=== PATIENT | female | born 1935 | race Caucasian/White ===

== ENCOUNTER → 2016-09-29 | Day surgery (SDC) | payer OTHER ==
[~2016-09-29] MED LIST: ACETAMINOPHEN/HYDROcodone 325 MG/5 MG TAB ONE; BUPIVACAINE/EPINEPHRINE 0.25% PF 10 ML VIAL ONE; FENO160T2 PO; KETOROLAC TROMETHAMINE 30 MG/ML (IVP) VIAL ONE; LACTATED RINGER'S 1000 ML INJ 1,000 ML ONE; LISI10TA PO; MEPERIDINE HCL 25 MG/ML VIAL ONE; METF-324 PO; MORPHINE SULFATE 4 MG/ML INJ ONE; ONDANSETRON HCL 4 MG/2 ML VIAL IV PUSH ONE; OXYC-68 PO; PROPOFOL 200 MG/20 ML AMP IV ONE; SIMV20TA PO; SODIUM CHLORIDE 0.9% INJ 10 ML ONE; TRAZ100 PO; VITA100020 IJ; VITA5000 PO; ceFAZolin INJ 1,000 MG VIAL ONE
--- NOTE | 2016-09-29 15:39 | TN ---
cc: BETTE MANZANARES M.D. DATE OF SURGERY: 10/09/2016 X-ray left hip, one view AP, shows satisfactory placement of an anchor screw tap, left hip greater trochanteric bursa region. MD RAVIN Headley/CIERRA /3:27 PM /3:36 PM
--- NOTE | 2016-09-29 16:01 | TN ---
cc: BETTE AUSTIN M.D. DATE OF SURGERY 09/29/2016 PREOPERATIVE DIAGNOSES 1. Left hip chronic greater trochanteric bursitis. 2. Left hip gluteus medius, gluteus minimus (hip abductors) tendonitis, partial tendon tears. POSTOPERATIVE DIAGNOSES 1. Left hip chronic greater trochanteric bursitis. 2. Left hip gluteus medius, gluteus minimus (hip abductors) tendonitis, partial tendon tears. PROCEDURE Left hip, excision of chronic greater trochanteric bursa; repair and transfer external oblique and hip abductor tendons to greater trochanter. SURGEON Yohana Austin MD ASSESSMENT Tessy Arce, PAC SPECIMENS None. ESTIMATED BLOOD LOSS Minimal. COMPLICATIONS None. ANESTHESIA General. DRAINS None. CONDITION Stable. PLAN Activity as per orders. PROCEDURE The patient was brought in the operating room, had satisfactory anesthesia by Dr. Sy Brown of the department of anesthesia. The patient was carefully transferred on the operating room table. She was placed in the lateral decubitus position. The patient placed in beanbag. All pressure points well-padded. Martino bag was made hard for appropriate positioning. The left hip and lower extremity down to and including the toes was prepped and draped in usual sterile manner. Small lateral exposure to the hip was made. Dissection of the skin and subcutaneous tissue. All bleeders coagulated. The fascia jesús and gluteus tervor was incised in line with skin incision. Patient found to have significant chronic greater trochanteric bursitis. Excision of the greater trochanteric bursa was performed. This was done with Bovie and coagulation and with Metzenbaum scissors. The patient was found to have a partial tear involving the gluteus medius and minimus tendons. Using a 5.5 mm x 14 mm light anchor screw under fluoroscopic guidance, it was initially punched and tapped. This is done under fluoroscopic guidance into the appropriate depth of the tap. [place] screw itself was then placed into this prepared hole. With the four needles and then the sutures were used. Transfer of the external oblique tendons with the repair of the gluteus medius and minimus abductor tendons. This was done in a very satisfactory manner. The wound was irrigated with copious amounts of sterile saline and antibiotic solution. The wound itself was dry. Wound was closed in routine manner. The fascia jesús and gluteus trevor were closed with #2 Tycron suture. Subcutaneous layers were closed with 2-0 and 3-0 Vicryl. The skin was approximated with running subcuticular 2-0 nylon. Sterile dressings were applied. The patient tolerated the procedure well and arrived in recovery room in stable and satisfactory condition. ADDENDUM X-ray left hip, one view AP, shows satisfactory placement of an anchor screw tap, left hip greater trochanteric bursa region. MD RAVIN Headley/KK /3:21 PM /12:21 PM
== END | disposition home or self-care (01) ==
LOC: ESDC 12:36
PROVIDERS: ATTEND Orthopaedic Surgery Orthopaedic Surgery of the Spine
DX: M70.62 Trochanteric bursitis, left hip (principal); M76.02 Gluteal tendinitis, left hip
CPT/HCPCS: 01250; 27062; 27100; 73501; 76000; C1713; J0690; J1885; J2175; J2270; J2405; J3010; J7120

== ENCOUNTER 2018-01-19 05:38 | Inpatient (IN) ==
[2018-01-19] MEDS ORDERED: Metoprolol Tartrate 25 MG Tablet PO SCH (06:15)
[2018-01-19] MEDS ORDERED: Chlorhexidine Gluconate 2% 1 Pack (2 Cloths) TOPICAL SCH (06:15)
[2018-01-19] MEDS ORDERED: Chlorhexidine 4% Topical 120 APPLIC/120 ML Bottle TOPICAL SCH (06:15)
[2018-01-19] MEDS ORDERED: Vancomycin Inj 1 GM/200 ML PIGGYBACK IV.SIG SCH (07:00)
[2018-01-19] MEDS ORDERED: Sodium Chlor 0.9% Inj 500 ML IV.SIG SCH (07:00)
[2018-01-19] MEDS ORDERED: ceFAZolin 2 GM Premix Inj 2 GM/50 ML PIGGYBACK IV.SIG SCH (07:00)
[2018-01-19] MEDS ORDERED: Glycopyrrolate Inj 1 MG/5 ML Syringe IV.PUSH ONE (12:00)
[2018-01-19] MEDS ORDERED: Phenylephrine/NS 1000 MCG/10ML Syringe IV.PUSH ONE (12:00)
[2018-01-19] MEDS ORDERED: Lidocaine PF 1% Inj 5 ML Syringe INFILTRATN ONE (12:00)
[2018-01-19] MEDS ORDERED: Neostigmine Inj 5 MG/5 ML Syringe IV.PUSH ONE (12:00)
[2018-01-19] MEDS ORDERED: Bisacodyl 10 MG Supp RECTAL PRN (12:35)
[2018-01-19] MEDS ORDERED: Morphine Inj 4 MG/ML Vial IV.PUSH PRN (12:35)
[2018-01-19] MEDS ORDERED: oxyCODONE/Acetaminophen 10/325 Tablet PO PRN (12:35)
[2018-01-19] MEDS ORDERED: Post-op Orders (for Pharmacy) OTHER STA (12:35)
--- NOTE | 2018-01-19 12:50 | P.OP ---
- Preoperative Diagnosis (1) Lumbar spinal stenosis (2) Status post lumbar laminectomy Comment: L3-4, L4-5, L5-S1 (3) Lumbar radiculopathy Comment: Left greater than right (4) Lumbar spine instability Date of procedure: 01/19/18 Procedure: Revision lumbar laminectomy L3-4 with left subtotal facet resection L3-4. Revision lumbar laminectomy L4-5 with subtotal facet resection left L4-5. Revision lumbar laminectomy L5-S1 with subtotal facet resection left L5-S1. Posterior spinal fusion, lateral transverse process technique L3-S1. Posterior lateral interbody fusion L3-4, L4-5 and L5-S1, from the left. Placement of interbody cages L3-4, L4-5, L5-S1. Posterior spinal segmental instrumentation, L3-S1. Major bone grafting of the lumbar spine Anesthesia: GETA Surgeon: Pradip Austin MD Mold Puller: JORDY Ley Operation and Findings: EBL: 200 ml NOTE: Anna Marie Ley PA-C was present for the entire surgical procedure as my care management assistant. In my medical opinion her skill and care was necessary for proper management of this patient INDICATIONS: This patient is an 82-year-old female status post multiple previous lumbar surgeries for laminectomy and decompression. The patient has segmental instability at all 3 levels. She has a high-grade foraminal stenosis L3-4 L4-5 and L5-S1. She has significant spondylosis with collapse contributing to that foraminal stenosis. This patient now presents for surgical treatment. INSTRUMENTATION: Spine wave stacks cages and extended tab instrumentation PROCEDURE: The patient brought to the operating room and anesthetized the supine position. The patient positioned prone on the Zach frame on the Anderson table. All pressure points are protected. The back was scrubbed with alcohol followed by Hibiclens followed by ChloraPrep and draped sterilely and antibiotics were given within a routine time window. A timeout was done. Lateral radiographic images used to identify the proper level for the procedure. This was compared to the preoperative studies. Skin markings were made anticipating surgical treatment. The previous incision was excised. Exposure was afforded from L3 to the sacrum. Dissection continued across the facet joints and out to the tips of the transverse process which were prepared for later bone grafting. The microscope was rolled into the field. Under magnification, a high-speed bur was used to remove the lamina mostly to the left side but extending across midline at the L3-4 level. A subtotal facet resection was accomplished. There was a significant degree of scar tissue involving the crossing left L3 nerve root below the disc space and around the pedicle of L3. The lateral recess was completely decompressed. The annulus was approached. An annulotomy was performed and a total discectomy accomplished. A combination of local bone graft, demineralized bone matrix and stem cells were mixed. These were then impacted into the disc space between L3 and L4 followed by placement of a 21 mm Staxx cage which was deployed. Further bone grafting was continued posterior to the instrumentation. The wound was dry. We extended down to the L4-5 level. Revision of that laminectomy also was accomplished. A subtotal facet resection was accomplished on the left side. High degree of scar tissue seen involving L3 nerve root in the canal before exiting the foramen. The L4 nerve root was completely decompressed. There was some scar tissue along the edge of the dura between L3 and L4 nerve roots. The annulus was approached. This was opened. All cartilaginous material was removed. Bone graft was placed into this region followed by placement of a Staxx cage which was deployed. The attention was directed to L5-S1 and in a likewise fashion this level was decompressed. There was a significant amount of granulation material adjacent to the joint consistent with an early ganglion cyst compressing the exiting L5 nerve root. The crossing S1 nerve root was decompressed as well. An annulotomy was accomplished. A total discectomy was accomplished. Bone grafting was position followed by placement of a cage at S1. Each pedicle was probed and accessed with a combination of a high-speed bur for entrance and a blunt probe. These were measured and very carefully screws placed bilaterally at L3, L4, L5 and S1. Each screw was charged with electric current and there were no abnormal potentials registered in either lower extremity. A proper length slava was attached and tightened re-creating lordosis. The wound was irrigated copiously. Bone grafting was placed in the lateral gutters from L3 to the sacrum. A deep drain was brought out through a separate stab incision. The fascia was closed with interrupted #1 Vicryl suture, subcutaneous tissue 2-0 Vicryl suture and skin with intradermal 3-0 Vicryl followed by Steri-Strips benzoin and a sterile dressing. Intraoperative x-rays were obtained showing satisfactory alignment and position of the instrumentation. There was no complication that was appreciated. The patient was awakened and taken to the recovery room in satisfactory condition. FINDINGS: There was a high-grade stenosis at L3-4 and a moderate to high-grade at L4-5. There was a ganglion compressing the exiting L5 nerve root at L5-S1. There is no complication that was appreciated. There was no leak of cerebrospinal fluid.
[2018-01-19] MEDS ORDERED: HYDROmorphone PF Inj 2 MG/ML Vial ONE (13:41)
[2018-01-19] MEDS ORDERED: fentaNYL Citrate Inj 100 MCG/2 ML Ampul ONE (13:45)
--- NOTE | 2018-01-19 16:10 | XR ---
EXAM DATE: 01/19/2018 3:59 PM EDT AGE/SEX: 82 years / Female INDICATIONS: L3-4, L4-5, L5-S1 posterior lumbar fusion. CLINICAL DATA: This is the patient's initial encounter. Patient reports that signs and symptoms have been present for 1 day and indicates a pain score of Nonresponsive. MEDICAL/SURGICAL HISTORY: Hypertension. Diabetes mellitus type II. . Multiple laminectomies. COMPARISON: [facility], MR LUMBAR SPINE W AND W/O CONTRAST, 04/14/2017. . FINDINGS: AP and crosstable lateral views of the lumbar spine demonstrate intradiscal and transpedicular screw and slava fixation with at L3-S1. Hardware appears intact and there is intact size and alignment. Verte bral body heights are maintained. CONCLUSION: 1. Status post posterior fixation at L3-S1, as above. Electronically signed by: Oneil Doran MD 01/19/2018 4:09 PM EDT
[2018-01-19] MEDS: oxyCODONE/Acetaminophen 10/325 Tablet PO PRN (16:54)
[2018-01-19] MEDS: Morphine Sulfate 60 MG SR Tablet PO SCH (20:41)
[2018-01-19] MEDS: Multivitamin/Minerals Therapeutic Tablet PO SCH (20:41)
[2018-01-19] MEDS: Senna/Docusate Sodium 8.6/50 MG Tablet PO SCH (20:42)
[2018-01-19] MEDS ORDERED: FENOFIBRATE PO SCH (21:00)
[2018-01-19] MEDS ORDERED: Temazepam 15 MG Capsule PO PRN (21:00)
[2018-01-20] MEDS: oxyCODONE/Acetaminophen 10/325 Tablet PO PRN ×5 (02:42→20:45)
[2018-01-20] MEDS: hydroCHLOROthiazide 25 MG Tablet PO SCH (10:24)
[2018-01-20] MEDS: Morphine Sulfate 60 MG SR Tablet PO SCH ×2 (10:25→20:44)
[2018-01-20] MEDS: Lisinopril 20 MG Tablet PO SCH (10:25)
[2018-01-20] MEDS: Multivitamin/Minerals Therapeutic Tablet PO SCH ×2 (10:25→20:46)
[2018-01-20] MEDS: amLODIPine 10 MG Tablet PO SCH (10:25)
[2018-01-20] MEDS: Senna/Docusate Sodium 8.6/50 MG Tablet PO SCH ×2 (10:25→20:46)
--- NOTE | 2018-01-20 13:01 | P.PNOP ---
Subjective Interval history: Moderate to significant low back pain following surgery. her leg pain is much better. She has only been out of bed 1-2 times to the chair. She is urinating and drinking lots of water. No new CP or SOB. She is very concerned about going home. Prefers rehab. Physical Exam Vital signs: Vital Signs 01/19/18 13:30 01/19/18 13:45 01/19/18 14:00 Temperature 97.7 F Pulse Rate 52 L 72 78 Respiratory Rate 16 16 16 Blood Pressure 104/31 L 105/51 L 114/56 L Pulse Oximetry 95 95 95 01/19/18 14:15 01/19/18 14:30 01/19/18 15:30 Temperature Pulse Rate 79 79 87 Respiratory Rate 16 18 18 Blood Pressure 130/60 131/55 L 143/65 H Pulse Oximetry 95 95 95 01/19/18 16:30 01/19/18 18:00 01/19/18 20:00 Temperature 97.8 F 98.5 F 97.9 F Pulse Rate 98 H 102 H 107 H Respiratory Rate 18 18 18 Blood Pressure 144/68 H 151/71 H 138/60 Pulse Oximetry 95 95 95 01/20/18 00:00 01/20/18 00:09 01/20/18 03:17 Temperature 98.1 F Pulse Rate 96 H Respiratory Rate 19 15 15 Blood Pressure 147/65 H Pulse Oximetry 94 L 01/20/18 04:00 01/20/18 08:00 01/20/18 10:03 Temperature 98.0 F 98.4 F Pulse Rate 92 H 90 Respiratory Rate 20 17 Blood Pressure 144/64 H 144/75 H Pulse Oximetry 94 L 94 L 95 01/20/18 12:00 Temperature 97.9 F Pulse Rate 89 Respiratory Rate 18 Blood Pressure 140/63 Pulse Oximetry 93 L Intake & Output 01/19/18 01/20/18 01/20/18 18:59 06:59 18:59 Intake Total 2150 / 2150 4200 / 4200 Output Total 675 / 675 2080 / 2080 Balance 1475 / 1475 2120 / 2120 Weight 67.132 kg 67.13 kg Intake: IV 1250 / 1250 1200 / 1200 LR 1000 mL Inj 1,000 ML @ 80 1000 / 1000 mls/hr IV.CONT .[id number] [facility] Rx# :[id number] LR 1000 mL Inj 1,000 ML @ 30 1000 / 1000 mls/hr IV.SIG .Q24H [facility] Rx#: [id number] Vancomycin Inj 1 gm In 200 ml @ 200 / 200 200 mls/hr IV.SIG [employer] [facility] Rx#:[id number] Ancef 2 GM Premix Inj 2 gm In 50 / 50 50 ml @ 100 mls/hr IV.SIG [employer] [facility] Rx#:[id number] Ancef Inj 1,000 MG In NS Inj 200 / 200 100 ML @ 100 mls/hr IV.SIG ONCE ONE Rx#:[id number] Oral 3000 / 3000 Anesthesia Amount 900 / 900 Output: Urine 2000 / 2000 Estimated Blood Loss 200 / 200 Urine Amount (Catheter) 300 / 300 Indwelling Urethral Catheter 300 / 300 Wound Drainage 175 / 175 80 / 80 # 1 Lower Back Hemovac 175 / 175 80 / 80 Other: Date of Last Bowel Movement 01/19/18 Narrative: Laying in bed NAD L/S Dressing intact, mild ss drainage, mild swelling, no erythema +motor at (R 5/5, L 5-/5), ehl (R 5/5, L 5-/5), +sens, +nvi Neg homans bilaterally - Constitutional no acute distress - Urinary Catheter Management Indwelling Urethral Catheter Cath placed during this visit: yes, but has since been removed by the nurse Reason for continuing: Decision to DC catheter Insertion date: 01/19/18 Insertion time: 08:00 Removal date: 01/20/18 Removal time: 02:30 Results - Labs CBC & Chem 7: 01/20/18 07:30 Laboratory Results - last 24 hr 01/19/18 01/20/18 18:10 07:30 Hgb 9.1 L POC Glucose 148 H - Imaging Impressions Lumbar Spine X-Ray 01/19/18 00:00 CONCLUSION: 1. Status post posterior fixation at L3-S1, as above. - Procedures Lami L34, L45, L5S1, Posterior fusion L3-S1 Assessment and Plan - Ortho Post Op Day # 1 - Assessment and Plan pod#1 s/p Lami/Fusion L3-S1 Pain only moderately controlled. Leg pain much improved. Encouraged PT, ambulate with walker. Out of bed with brace for 10-12 weeks. Hold dressing changes unless saturated. PO pain meds as needed. Ice lumbar spine bid when in bed. D/C planning, likely SNF thursday. DME written.
[2018-01-20] MEDS: Fenofibrate 145 MG Tablet PO SCH (13:19)
[2018-01-21] MEDS: oxyCODONE/Acetaminophen 10/325 Tablet PO PRN ×3 (00:40→20:19)
--- NOTE | 2018-01-21 07:19 | P.PNOP ---
Subjective Interval history: Doing well. No leg pain. Complains of moderate low back pain. Having difficulty with independence going from bed to chair and walking Physical Exam Vital signs: Vital Signs 01/20/18 08:00 01/20/18 10:03 01/20/18 12:00 Temperature 98.4 F 97.9 F Pulse Rate 90 89 Respiratory Rate 17 18 Blood Pressure 144/75 H 140/63 Pulse Oximetry 94 L 95 93 L 01/20/18 16:00 01/20/18 20:00 01/20/18 21:14 Temperature 98.1 F 98.3 F Pulse Rate 87 99 H Respiratory Rate 18 18 18 Blood Pressure 146/65 H 148/66 H Pulse Oximetry 92 L 94 L 01/21/18 00:00 01/21/18 01:25 01/21/18 04:00 Temperature 98.1 F 98.6 F Pulse Rate 100 H 92 H Respiratory Rate 18 18 18 Blood Pressure 166/71 H 119/64 Pulse Oximetry 94 L 97 Intake & Output 01/20/18 01/21/18 01/21/18 18:59 06:59 18:59 Intake Total 650 / 650 Balance 650 / 650 Intake: Oral 650 / 650 Other: # Voids 4 Date of Last Bowel Movement 01/19/18 Narrative: Laying in bed NAD L/S Dressing intact, mild ss drainage, mild swelling, no erythema +motor at (R 5/5, L 5-/5), ehl (R 5/5, L 5-/5), +sens, +nvi Neg homans bilaterally - Urinary Catheter Management Indwelling Urethral Catheter Cath placed during this visit: yes, but has since been removed by the nurse Reason for continuing: Decision to DC catheter Insertion date: 01/19/18 Insertion time: 08:00 Removal date: 01/20/18 Removal time: 02:30 Results - Labs CBC & Chem 7: 01/20/18 07:30 Laboratory Results - last 24 hr 01/20/18 07:30 Hgb 9.1 L - Procedures Lami L34, L45, L5S1, Posterior fusion L3-S1 Assessment and Plan - Assessment and Plan pod#1 s/p Lami/Fusion L3-S1 Pain only moderately controlled. Leg pain much improved. Encouraged PT, ambulate with walker. Out of bed with brace for 10-12 weeks. Hold dressing changes unless saturated. PO pain meds as needed. Ice lumbar spine bid when in bed. D/C planning, likely SNF thursday. DME written. Stable orthopedically
[2018-01-21] MEDS: Morphine Sulfate 60 MG SR Tablet PO SCH ×2 (08:13→20:19)
[2018-01-21] MEDS: amLODIPine 10 MG Tablet PO SCH (08:13)
[2018-01-21] MEDS: hydroCHLOROthiazide 25 MG Tablet PO SCH (08:13)
[2018-01-21] MEDS: Senna/Docusate Sodium 8.6/50 MG Tablet PO SCH ×2 (08:13→20:19)
[2018-01-21] MEDS: Fenofibrate 145 MG Tablet PO SCH (08:13)
[2018-01-21] MEDS: Lisinopril 20 MG Tablet PO SCH (08:13)
[2018-01-21] MEDS: Multivitamin/Minerals Therapeutic Tablet PO SCH ×2 (08:13→20:19)
[2018-01-22] MEDS: oxyCODONE/Acetaminophen 10/325 Tablet PO PRN ×4 (00:38→18:19)
--- NOTE | 2018-01-22 07:35 | P.DS ---
Date of admission: 01/19/18 05:38 Primary care physician: No Primary Care Physician Attending physician on discharge: Pradip Austin Anticipated date of discharge: 01/22/18 Brief History from admission: Ms. Hackett has had ongoing back and hip pain for many years. She had previous laminectomy surgery in 2012 and 2015. Due to ongoing back symptoms and other arthritic conditions she began on narcotic pain medications. She began to have increasing leg pain. MRI studies were performed July 2016 and also August 2016 showing advancing lumbar spinal stenosis L3-S1. She began using a cane or a walker when she was out of her home. She underwent recent nerve root injection without much relief. Surgical treatment was eventually recommended in the form of revisional laminectomy L3-4, L4-5, L5-S1 and fusion at those levels. The patient agreed and now presents for the above. DS: Diagnosis - Discharge Diagnosis (1) Lumbar spinal stenosis Status: Acute (2) Status post lumbar laminectomy Status: Acute DS: Medications - Discharge Medications Prescriptions: oxycodone-acetaminophen 1 tab PO Q4H PRN #42 tab PRN Reason: Acute Pain DS: Summary Hospital Course: Surgical treatment was performed on the day of admission without complication. She recovered well in PACU and was transferred to the orthopaedic floor. Pain was controlled with IV and oral medication. Her preop leg pain improved. She was compliant with physical therapy and her lumbar brace. After 3 days she was found to be stable and discharged to a long-term facility. 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 She was given prescription for oxycodone for pain. - Time Spent with Patient Total time spent providing and/or coordinating discharge services: Greater than 30 minutes - Quality: VTE Deep Vein Thrombosis/Pulmonary Embolism Present on Admission: No Exam Vital signs: Vital Signs 01/21/18 08:00 01/21/18 11:57 01/21/18 16:00 Temperature 99.1 F 99.2 F 98.7 F Pulse Rate 113 H 114 H 108 H Respiratory Rate 17 18 17 Blood Pressure 166/75 H 144/60 H 143/63 H Pulse Oximetry 100 97 92 L 01/21/18 20:00 01/21/18 20:49 01/22/18 00:00 Temperature 100.3 F H 98.5 F Pulse Rate 116 H 95 H Respiratory Rate 18 18 18 Blood Pressure 166/57 H 117/56 L Pulse Oximetry 94 L 94 L 01/22/18 01:08 01/22/18 04:00 Temperature 98.1 F Pulse Rate 88 Respiratory Rate 18 18 Blood Pressure 121/58 L Pulse Oximetry 94 L Intake & Output 01/21/18 01/22/18 01/22/18 18:59 06:59 18:59 Intake Total 960 / 960 Balance 960 / 960 Weight 67.2 kg Intake: Oral 960 / 960 Other: # Voids 5 2 Date of Last Bowel Movement 01/19/18 01/19/18 - Constitutional no acute distress Results Procedures completed during hospitalization: Lami L34, L45, L5S1, Posterior fusion L3-S1 - Impressions ITS Impressions Lumbar Spine X-Ray 01/19/18 00:00 CONCLUSION: 1. Status post posterior fixation at L3-S1, as above. Discharge Plan - Discharge Disposition Patient Disposition: Discharge to SNF - Discharge Condition Condition: Good - Discharge Order Discharge Orders: Discharge Order (Routine); Ordered 01/22/18 Ordered By: Pradip Austin - Discharge Details Anticipated Discharge Date: 01/22/18 - Physicians Team Primary Care Provider: Primary Care Torri Baires Attending Provider: Pradip Austin Other Providers: Reggie Paredes - Rxs /Orders / Referrals /Forms Prescriptions: New oxycodone-acetaminophen 10-325 mg Tablet 1 tab PO Q4H PRN (Reason: Acute Pain) Qty: 42 RF: 0 Continue acetaminophen [Tylenol Extra Strength] 500 mg Tablet 1,000 mg PO BID PRN (Reason: Pain) amlodipine 10 mg Tablet 10 mg PO DAILY fenofibrate 160 mg Tablet 80 mg PO BID lisinopril-hydrochlorothiazide 20-25 mg Tablet 1 tab PO DAILY metformin 1,000 mg Tablet 1,500 mg PO DAILY morphine 60 mg Capsule, Er Multiphase 24 Hr 60 mg PO BID simvastatin 40 mg Tablet 20 mg PO BID Ambulatory Orders / Order Sets / DME: Adjustable Commode 3-in-1 (1 each) (Routine) Location: Determined by Patient Ordered By: Amaris Holly Walker With Front Wheels (1 each) (Routine) Location: Determined by Patient Ordered By: Amaris Holly Referrals: Primary Care Torri Baires [Primary Care Provider] - See Instructions - Discharge Instructions Patient Printed Instructions: Laminectomy (DC), How to Choose and Use a Walker (GEN), Lumbar Brace (DC) Additional Instructions: Prescriptions for Percocet provided at discharge Brace when out of bed for 10-12 weeks Leave dressing in place unless saturated per surgeon NO DRESSSING CHANGES - Post Discharge Care Plan Care Plan Goals: Your Health Problems: Spinal stenosis lumbar spine - Continue your lumbar brace when out of bed for 10 -12 weeks following surgery. You do not have to sleep in the brace. You can take the brace off for short periods of time for hygiene. No heavy lifting or repetitive bending. Goals to Promote Your Health: * To prevent worsening of your condition * To maintain your health at the optimal level Directions to Meet Your Goals: * Take your medications as prescribed * Follow your dietary instruction * Follow activity as directed * Keep your appointments as scheduled * Take your immunizations and boosters as scheduled * If your symptoms worsen call your PCP * If no PCP go to Urgent Care or Emergency Room Smoking is dangerous to your health. Avoid second hand smoke. You may reach the 24-hour crisis hotline for domestic abuse at .
--- NOTE | 2018-01-22 07:56 | P.PNOP ---
Subjective Interval history: No complaints. Minimal achiness in both legs. Mild to moderate low back pain. Physical Exam Vital signs: Vital Signs 01/21/18 08:00 01/21/18 11:57 01/21/18 16:00 Temperature 99.1 F 99.2 F 98.7 F Pulse Rate 113 H 114 H 108 H Respiratory Rate 17 18 17 Blood Pressure 166/75 H 144/60 H 143/63 H Pulse Oximetry 100 97 92 L 01/21/18 20:00 01/21/18 20:49 01/22/18 00:00 Temperature 100.3 F H 98.5 F Pulse Rate 116 H 95 H Respiratory Rate 18 18 18 Blood Pressure 166/57 H 117/56 L Pulse Oximetry 94 L 94 L 01/22/18 01:08 01/22/18 04:00 Temperature 98.1 F Pulse Rate 88 Respiratory Rate 18 18 Blood Pressure 121/58 L Pulse Oximetry 94 L Intake & Output 01/21/18 01/22/18 01/22/18 18:59 06:59 18:59 Intake Total 960 / 960 Balance 960 / 960 Weight 67.2 kg Intake: Oral 960 / 960 Other: # Voids 5 2 Date of Last Bowel Movement 01/19/18 01/19/18 Narrative: Laying in bed NAD L/S Dressing intact, mild ss drainage, mild swelling, no erythema +motor at (R 5/5, L 5-/5), ehl (R 5/5, L 5-/5), +sens, +nvi Neg homans bilaterally - Urinary Catheter Management Indwelling Urethral Catheter Cath placed during this visit: yes, but has since been removed by the nurse Reason for continuing: Decision to DC catheter Insertion date: 01/19/18 Insertion time: 08:00 Removal date: 01/20/18 Removal time: 02:30 Results - Labs CBC & Chem 7: 01/20/18 07:30 - Procedures Lami L34, L45, L5S1, Posterior fusion L3-S1 Assessment and Plan - Problem List (1) Lumbar spinal stenosis Code(s): M48.061 - Spinal stenosis, lumbar region without neurogenic claudication Status: Acute (2) Status post lumbar laminectomy Code(s): Z98.890 - Other specified postprocedural states Status: Acute - Assessment and Plan pod#3 s/p Lami/Fusion L3-S1 Pain only moderately controlled. Leg pain much improved. Encouraged PT, ambulate with walker. Out of bed with brace for 10-12 weeks. Hold dressing changes unless saturated. PO pain meds as needed. Ice lumbar spine bid when in bed. D/C planning, SNF today DME written. Stable orthopedically
[2018-01-22] MEDS: hydroCHLOROthiazide 25 MG Tablet PO SCH (09:18)
[2018-01-22] MEDS: Senna/Docusate Sodium 8.6/50 MG Tablet PO SCH (09:18)
[2018-01-22] MEDS: amLODIPine 10 MG Tablet PO SCH (09:18)
[2018-01-22] MEDS: Morphine Sulfate 60 MG SR Tablet PO SCH (09:19)
[2018-01-22] MEDS: Multivitamin/Minerals Therapeutic Tablet PO SCH (09:20)
[2018-01-22] MEDS: Fenofibrate 145 MG Tablet PO SCH (09:20)
[2018-01-22] MEDS: Lisinopril 20 MG Tablet PO SCH (09:22)
== END 2018-01-22 19:40 ==
LOC: HSDI 05:38 → N06 16:50
PROVIDERS: ADMIT Orthopaedic Surgery Orthopaedic Surgery of the Spine; ATTEND Orthopaedic Surgery Orthopaedic Surgery of the Spine